=== PATIENT | female | born 1945 | race Caucasian/White ===

== ENCOUNTER 2018-06-01 06:40 | Day surgery (SDC) | payer BC, SELFPAY ==
[2018-05-18 08:54] VITALS: BMI 31.0
[2018-06-01] VITALS (16 sets, daily range): BP systolic 112–164; BP diastolic 51–89; PULSE 56–81; RESP 10–20; TEMP 36.1–36.7; O2SAT 94–100; BMI 30.6; BMI 32.1
[2018-06-01] MEDS: ACETAMINOPHEN 325 MG TABLET 975 MG PO ×3 (07:39→20:28)
--- NOTE | 2018-06-01 07:40 | PM.PREOP ---
Pre-operative Note Interval Note History & Physical reviewed/Exam performed by Physician: Yes Changes to H&P: No
--- NOTE | 2018-06-01 07:40 | PM.OP.1 ---
Operative Date/Time/Diagnoses Date of procedure: 06/01/18 Time of procedure: 10:56 Pre-op diagnosis: Left knee osteoarthritis Post-op diagnosis: same Procedure & Clinicians Procedure: Left total knee arthroplasty Same procedure as scheduled: Yes Indications: The patient presents today for total knee arthroplasty after failure of conservative treatment. The nature of the procedure including the risks and benefits, alternatives, postoperative course and expected outcome were discussed and all questions answered. Consent was obtained. Operative site confirmed and marked. Surgeon: Ramy Guillen Architectural Engineering Teacher: Surya Diaz Anesthesia Type: General, Spinal and Local Operative Notes Findings: Severe osteoarthritis with varus alignment. Closure Type: primary Specimen(s): none sent Prosthetic devices, grafts, tissues, transplants, or devices: [facility]: 5 femoral component, 3 tibial component, 9 mm BCS polyethylene tray and 32 x 9 mm round patella Applied: implant(s) Estimated Blood Loss (mL): 50 Blood products transfused: none Tourniquet time (min): 18 Procedure in detail: The patient was taken to the operative suite and placed under general and spinal anesthesia. The patient was given prophylactic antibiotics prior to surgery. The patient was also given tranexamic acid, 1 g, just prior to surgery for postoperative hemostasis. The lateral knee was prepped and the joint injected with 20 mL of 1% Lidocaine with epinephrine. The knee was then prepped and draped in usual sterile fashion. The leg was exsanguinated with an Esmarch dressing and the tourniquet raised to 250 torr. A 15 cm anterior incision was made. Next a medial trivector arthrotomy was made. The extensor mechanism was marked to ensure accurate repair. Initial exposing dissection was carried out medially and laterally. The knee was then extended and the patellar thickness was measured and a cut made removing approximately 9 mm of bone with a goal of restoring normal patellar thickness. The patella was then sized and drilled. Some excess lateral bone was excised and the patellofemoral ligament released. The tourniquet was then released. The knee was then flexed and the [employer] femoral guide was placed. The anterior pins were placed and the distal rotation holes drilled. The distal cutting guide was placed and the templated distal femoral cut was made. The templating cutting block was then placed and the anterior, posterior and chamfer cuts made. The [employer] tibial guide was placed and the alignment checked along the axis of the proximal tibial with a gordo. The proximal tibial cut was then made with an oscillating saw. All meniscus and bony debris was then removed. Flexion extension gaps were checked. The knee was tight laterally as expected from preoperative alignment. The lateral capsule was released using a pie crust technique with a 15 blade. This nicely balanced the medial lateral gaps. The soft tissues were then injected with a combination of 20 mL of half percent Marcaine with epinephrine and 20 mL of Exparel. The trial components were then placed. The knee went into full extension and flexion beyond 120?. There was excellent medial- lateral balance throughout motion. Patellar tracking was excellent. The trial components were removed and size is confirmed for the final implants. The knee was then exsanguinated with an Esmarch dressing and the tourniquet reapplied for cementing. The knee was cleansed with Pulsavac irrigation and dried. The final components were cemented in with high viscosity vacuum mixed bone cement with antibiotics. The knee was held in extension and the patellar clamp until the cement had adequately cured. The knee was then irrigated with dilute Betadine solution. The extensor mechanism was closed with 2 Quill suture at 90 degrees of flexion. The joint was then injected with a combination of 1 g of tranexamic acid and 20 mL of quarter percent Marcaine with epinephrine. The subcutaneous tissue was closed with 2-0 Vicryl. The skin was closed with werner and surgical adhesive. An Aquacel dressing and Vivek wrap were then applied. Complications: none Condition: stable Disposition: PACU Plan for aftercare: [facility] protocol for total knee arthroplasty.
--- NOTE | 2018-06-01 09:15 | DI.RAD.S_ITS ---
PROCEDURE: XR KNEE LT 1TO2V INDICATIONS: total left knee TECHNIQUE: 2 view(s) of the knee acquired. COMPARISON: None. FINDINGS: Bones: Patient is status post knee joint arthroplasty. Hardware components are in expected positions. Visualized bony structures are intact. Soft tissues: Overlying postoperative changes are noted. IMPRESSION: Expected immediate postoperative appearance, status post total left knee arthroplasty. Dictated by: Zack Alatorre M.D. on 06/01/2018 at 12:29 Approved by: Zack Alatorre M.D. on 06/01/2018 at 12:29
[2018-06-01] MEDS: CEFAZOLIN 2 GM/100 ML FROZ.PIGGY IV ×2 (09:25→18:50)
--- NOTE | 2018-06-01 10:12 | SUR.OPER ---
Supine on padded OR bed. Pillow under head, arms secured on padded armboards <90 degree abduction. Safety belt across torso. Non-operative leg secured with tape over blanket over lower leg. Operative leg secured in [employer]/Jose Carlos positioner. Foam padded brace at thigh of operative leg.
[2018-06-01] MEDS: LIDOCAINE 1% W/EPI INJ 20 ML INJ (10:18)
[2018-06-01] MEDS: TRANEXAMIC ACID 1,000 MG VIAL 1000 MG INJ (10:19)
[2018-06-01] MEDS: BUPIVACAINE 0.5% W/ EPI (PF) 10 ML, TRANEXAMIC ACID 1,000 MG, SODIUM CHLORIDE 0.9% 20 ML INJ (10:20)
[2018-06-01] MEDS: BUPIVACAINE LIPOSOME 266 MG/20 ML VIAL INJ (10:21)
[2018-06-01] MEDS: POVIDONE-IODINE 15 ML, SODIUM CHLORIDE 0.9% 250 ML TOP (10:25)
[2018-06-01] MEDS: LACTATED RINGERS 1,000 ML 42 ML IV (10:44)
[2018-06-01] MEDS: LACTATED RINGERS 1,000 ML 125 ML IV ×2 (12:08→19:29)
[2018-06-01] MEDS: ONDANSETRON 4 MG/2 ML INJ IV (14:13)
--- NOTE | 2018-06-01 14:34 | PC.NURSE ---
Pt was brought to the AC floor at approx. 1200 via the PACU. She is alert and oriented x3 with report of numbness and tingling to RLE. Right knee is wrapped with PAM wrap and is CDI with no drains present. She is able to wiggle her toes and wave her ankles moderately at 1440.. Pt has experienced some mild nausea and has been medicated with 4mg IV Zofran PRN. Upon reassessment, pt reported nausea had abated and was able to rest comfortably.
--- NOTE | 2018-06-01 15:17 | PT.IIE ---
Current Diagnoses Bilateral primary osteoarthritis of knee (06/01/18) Surgery Performed Operation Date: 06/01/18 09:15 Actual Procedures p Total Knee Arthroplasty(Left) - Ramy Guillen MD Surgical History (Last Updated 05/18/18 @ 09:12 by Loida Fonseca RN) Hx of arthroscopy of left knee (Acute) Hx of varicose vein stripping (Acute) Medical History (Last Updated 05/18/18 @ 09:12 by Loida Fonseca RN) Arthritis (Acute) Diverticulosis (Acute) Easy bruisability (Acute) Numbness and tingling of both feet (Acute) Pneumonia (Acute) Raynaud's phenomenon (Acute) Physical Therapy Inpatient Evaluation/Re-Eval M1 PT/OT-IP Prior Functional Status Start: 06/01/18 16:33 Freq: NEEDED Status: Active Protocol: Document 06/01/18 15:17 AB (Rec: 06/01/18 16:51 AB [id number]) Medical Review Prior Functional Status Medical History Reviewed Yes Communication able to make needs known Mobility and Gait stated that she is independent with all mobilities and ambulation without AD Social History Household Members spouse Living Arrangements House Number of Floors (Floors) One Floor Number of Stairs To Enter/Railing? 3 steps to enter with L rail ascending Home Environment High Toilet Walk in Shower Home Equipment Front Wheel Walker Bedside Commode Hand Held Shower Grab Bars In Shower Employment Status Retired M2 PT-IP Current Condition Start: 06/01/18 16:33 Freq: NEEDED Status: Active Protocol: Document 06/01/18 15:17 AB (Rec: 06/01/18 16:51 AB [id number]) Physical Therapy Current Condition Current Condition Evaluation Date 06/01/18 Treatment Diagnosis s/p L TKA; difficulty in walking Onset Date 06/01/18 Weight Bearing Status Weight Bearing Status Weight Bear as Tolerated M3 PT-IP Subjective Start: 06/01/18 16:33 Freq: NEEDED Status: Active Protocol: Document 06/01/18 15:17 AB (Rec: 06/01/18 16:51 AB [id number]) Subjective Physical Therapy Visit Type Type Initial Evaluation Visit Start Time 15:17 Visit Stop Time 15:48 Total Visit Minutes 31 Number of CONSTRUCTION CONTROLLER Visits 0 Physical Therapy Visit Comments Patient Comments pt agreeable to do PT; c/o nausea Therapy Pain Assessment Pain When Pain Assessed At Rest Pain Present Pain Present Pain Reported Location Left Knee Intensity 3 Scale Used Numeric (1 - 10) Pain Management Techniques Apply Cold Re-positioning Timing of Activity with Medications M4 PT-IP Mobility and Gait Start: 06/01/18 16:33 Freq: NEEDED Status: Active Protocol: Document 06/01/18 15:17 AB (Rec: 06/01/18 16:51 AB [id number]) PT-Bed Mobility Assessment Supine to Sit Supine to Sit Standby Assistance Sit to Supine Sit to Supine Standby Assistance PT-Transfer Assessment Sit to and From Stand Sit to and from Stand Contact Guard Assistance 1 Person Assistance Equipment Transfer Assistive Device Gait Belt Front Wheeled Walker Comments Mobility Comments pt with c/o nausea but agreed to do PT. BP 143/78. pt completed supine to sit SBA and was able to sit on EOB SBA . completed sit to stand CGA and was able to ambulate in room but has to go back to bed due to nausea. pt with (+) emesis. informed nurse. Gait Assessment Gait Gait Assistance Required: Contact Guard Assist Distance (Feet) 25 Able to Maintain Weight Bearing Status Yes During Gait Assistive Devices Assistive Device Gait Belt Front Wheeled Walker Orthotic/Prosthetic Devices or Brace: No Gait Deviations General Gait Pattern Antalgic Decreased Stride Length Decreased Feet Clearance Factors Limiting Gait Function Factors Limiting Gait Function Decreased Activity Tolerance Decreased Strength Limited Range of Motion Pain Poor Balance PT-Balance Assessment Sitting Balance and Reactions Static Sitting Balance Ability Good Dynamic Sitting Balance Ability Good Standing Balance and Reactions Static Standing Balance Ability Fair Dynamic Standing Balance Ability Fair Device Used FWW M5 PT-IP Objective Assessments Start: 06/01/18 16:33 Freq: NEEDED Status: Active Protocol: Document 06/01/18 15:17 AB (Rec: 06/01/18 16:51 AB [id number]) Orientation Orientation/Cognition Level of Alertness Alert Orientation Name Age Birthday Month Date Year Day of Week Place Situation Language Function Ability No Deficits Noted Safety Awareness Understands Safety Issues Memory Description No Deficits Noted Gross Range of Motion Lower Extremity ROM Assessment Left Impaired Impairments L knee flexion ~ 80 deg ; L knee extension lacking 10 deg to neutral Strength Lower Extremity Strength Assessment Left Impaired Knee 4-/5 Coordination Assessment Gross Coordination Gross Coordination WNL Sensation Assessment Sensation Gross Sensation WNL Muscle Tone Muscle Tone WNL Yes M6 PT-IP Treatment Start: 06/01/18 16:33 Freq: NEEDED Status: Active Protocol: Document 06/01/18 15:17 AB (Rec: 06/01/18 16:51 AB [id number]) Physical Therapy Treatment Exercises Exercises Quad Sets Heel Slides Education Education Provided Precautions Weight Bearing Status Post-Op Packet Safety M7 PT-IP Assessment and Plan Start: 06/01/18 16:33 Freq: NEEDED Status: Active Protocol: Document 06/01/18 15:17 AB (Rec: 06/01/18 16:51 AB [id number]) PT Summary Assessment and Plan Potential Rehabilitation Potential Good Status of Condition at Evaluation Evolving Summary Impairments Pain ROM Strength Balance Coordination Sensation Tone Cognition Bed Mobility Transfers Gait Activity Tolerance Assessment Summary pt requiring one person assist with mobility but unable to tolerate much activity due to c/o nausea. pt plans to go home with spouse to assist her . pt stated that she is set up for outpt PT. will complete caregiver training and stair climbing trainind when appropriate. Goals Bed Mobility Goal Independent Transfer Goal Independent Front Wheeled Walker Gait Goal Standby Assistance Front Wheel Walker Gait Distance 200 Other Goals up/down 3 steps with L rail ascending SBA Days to Meet Goals 3 Frequency of Treatment Frequency Of Treatment Twice a Day Treatment Plan Physical Therapy Treatment Plan Bed Mobility Training Transfer Training Gait Training Therapeutic Exercise Balance Retraining Post Op Education Discharge Planning Hot or Cold Pack Neuromuscular Re-ed Coordination Retraining Manual Therapy Other Recommendations and Next Treatment ambulation, stair climbing Focus Recommendations To Nursing Amount of Assist Needed 1 Person Assist Discharge Recommendations PT Discharge Recommendations Home with Assistance Outpatient PT
[2018-06-01] MEDS: OXYCODONE IR 5 MG TABLET PO (16:31)
--- NOTE | 2018-06-01 16:42 | PC.NURSE ---
1615- Pt up with PT at change of shift, reported nausea, with 20mL clear foamy emesis, back to bed with cold washcloth to forehead, nausea relieved. Pt with headache, given scheduled 1300 APAP 975mg, (pt was asleep at that hour), also rates knee pain 4/10 at this time, given percolone 5mg PO. Up to BRP 1PA FWW to void, unmeasured, denies nausea. ice packs to left knee, provided crackers, yogurt, and calf SCD's on, LFA LR @ 125, bed alarm on for safety.
[2018-06-01] MEDS: ONDANSETRON 4 MG ODT PO (19:18)
[2018-06-01] MEDS: ASPIRIN EC 81 MG TABLET PO (20:28)
[2018-06-01] MEDS: METOCLOPRAMIDE HCL 10 MG TABLET PO (20:44)
[2018-06-02 00:10] VITALS: BP 146/70; PULSE 71; RESP 16; TEMP 36.6; O2SAT 94
[2018-06-02] MEDS: OXYCODONE IR 5 MG TABLET PO ×2 (00:22→07:05)
--- NOTE | 2018-06-02 00:29 | PC.NURSE ---
Assumed care of pt at 2300 on 06/01/18. Pt sleeping during bedside hand-off. Bed alarm on. Call light within reach. Awakens to use bathroom at approx 0015. A/O. 1 PA to bathroom with fww. Steady on feet. Denies dizziness during ambulation but reports nausea, w/o emesis, resolved once back in bed. Declined need for medication. Medicated with 5 mg oxycodone for 4/10 post-op pain. CMS+. Able to wiggle toes, denies numbness. Drsg with silas wrap c/d/i. Ice packs to knee. SCD's on. CPOX on. IVF infusing per orders. Bed alarm on. Call light withing reach. Advised pt to call for needs and not to get oob without staff.
[2018-06-02] MEDS: CEFAZOLIN 2 GM/100 ML FROZ.PIGGY IV (02:04)
[2018-06-02] MEDS: LACTATED RINGERS 1,000 ML 125 ML IV (04:14)
[2018-06-02 05:47] VITALS: BP 142/72; PULSE 81; RESP 16; TEMP 36.4; O2SAT 98
[2018-06-02 06:55] LABS: Hematocrit 33.5 % (36-46); Hemoglobin 11.1 g/dL (12.0-16.0)
[2018-06-02 08:00] VITALS: BP 126/71; PULSE 74; RESP 16; TEMP 36.6; O2SAT 94
--- NOTE | 2018-06-02 08:26 | PM.DS.1 ---
History of Present Illness Date Patient Seen: 06/02/18 Time Patient Seen: 08:26 Chief complaint: Left Total Knee Arthroplasty Narrative: Hospital day 2, postop day 1 following left total knee arthroplasty by Dr. Guillen. Patient remained stable overnight. She has not had physical therapy yet. Patient is desiring to go home today if possible. She is taking oxycodone for pain. She is scheduled to go to [facility] in [place] next week. Discharge Providers Date of admission: 06/01/18 06:40 Discharge Date: 06/02/18 Primary care physician: Maldonado Ordoñez MD Consults: 06/01/18 06:00 Consult to Anesthesiology Routine Comment: Consulting Provider: Anesthesiologist Reason for consultation: Regional block for post operative pain control 06/01/18 11:56 Consult to Discharge Planning Routine Comment: Consult to Physical Therapy Evaluate & Treat Comment: Physician Instructions: postop TKA protocol Consult to Respiratory Therapy Evaluate & Treat Comment: Physician Instructions: Evaluate and treat Discharge provider: Kilo Nguyen PA-C Summary Discharge Diagnosis: Status post left total knee arthroplasty Hospital Course: Patient brought to hospital on 06/01/2018 for above-noted surgery. She remained stable postoperatively. Progressed with physical therapy. Discharged home on postop day 1. She is a [facility] patient. Status at Discharge Cognitive/behavioral status at discharge: at baseline, oriented and calm Functional status at discharge: uses cane/walker Overall status at discharge: patient is progressing back to baseline Time Spent with Patient Less than 30 minutes Exam Vital Signs (past 8 hours): - 06/02/18 05:47 Temperature 97.6 F Pulse Rate 81 Respiratory Rate 16 Blood Pressure 142/72 H Pulse Oximetry 98 Fraction of Inspired Oxygen 21 Oxygen Delivery Method Room Air Oxygen Flow Rate 0 Narrative Exam Narrative: Legs. Vivek wrap an Aquacel dressing to left knee is dry without drainage or inflammation. No calf pain or swelling. Pulses symmetrical. Objective Labs Result Diagrams: 06/02/18 06:36 Labs: Laboratory Results - last 24 hr 06/02/18 06:36 Hgb 11.1 L Hct 33.5 L Discharge Plan Discharge Plan Patient Disposition: Home Discharge comment: Discharged home today after cleared by PT. Patient is a [facility] path patient. She does have prescription for postop oxycodone. She is scheduled to go to [facility] in [place]. Discharge Med Rec/Prescriptions Prescriptions: New acetaminophen 325 mg Tablet 975 mg PO TID Qty: 30 RF: 0 aspirin 81 mg Tablet,Delayed Release (Dr/Ec) 81 mg PO BID Qty: 60 RF: 0 meloxicam [Mobic] 7.5 mg Tablet 15 mg PO DAILY Qty: 30 RF: 0 Discontinued meloxicam 15 mg tablet 15 mg PO QD-BID RF: 0 Follow up/Referrals: Maldonado Ordoñez MD [Primary Care Provider] - Provider Discharge Instructions Diet: Diet as Tolerated Activity: Ambulate as tolerated. Use walker as needed. Other treatments: Take aspirin 81 mg 1 b.i.d. times 30 days postop. Skin/Wound/Dressing Care Report to your healthcare provider any signs of infection, such as:: chills, fever, night sweats, increased pain, unusual drainage and unusual redness Dressing: Keep Aquacel dressing in place until postop visit. May remove Vivek wrap. Visit Report/Discharge Packet Instructions: DI for Knee Replacement Visit Report Forms: Stroke Signs & Symptoms Discharge Data Primary Care Provider: Maldonado Ordoñez Attending Provider: Ramy Guillen Admit Date/Time: 06/01/18 06:40
--- NOTE | 2018-06-02 08:29 | P.DS_ITS ---
History of Present Illness Date Patient Seen: 06/02/18 Time Patient Seen: 08:26 Chief complaint: Left Total Knee Arthroplasty Narrative: Hospital day 2, postop day 1 following left total knee arthroplasty by Dr. Guillen. Patient remained stable overnight. She has not had physical therapy yet. Patient is desiring to go home today if possible. She is taking oxycodone for pain. She is scheduled to go to [facility] in [place] next week. Discharge Providers Date of admission: 06/01/18 06:40 Discharge Date: 06/02/18 Primary care physician: Maldonado Ordoñez MD Consults: 06/01/18 06:00 Consult to Anesthesiology Routine Comment: Consulting Provider: Anesthesiologist Reason for consultation: Regional block for post operative pain control 06/01/18 11:56 Consult to Discharge Planning Routine Comment: Consult to Physical Therapy Evaluate & Treat Comment: Physician Instructions: postop TKA protocol Consult to Respiratory Therapy Evaluate & Treat Comment: Physician Instructions: Evaluate and treat Discharge provider: Kilo Nguyen PA-C Summary Discharge Diagnosis: Status post left total knee arthroplasty Hospital Course: Patient brought to hospital on 06/01/2018 for above-noted surgery. She remained stable postoperatively. Progressed with physical therapy. Discharged home on postop day 1. She is a [facility] patient. Status at Discharge Cognitive/behavioral status at discharge: at baseline, oriented and calm Functional status at discharge: uses cane/walker Overall status at discharge: patient is progressing back to baseline Time Spent with Patient Less than 30 minutes Exam Vital Signs (past 8 hours): - 06/02/18 05:47 Temperature 97.6 F Pulse Rate 81 Respiratory Rate 16 Blood Pressure 142/72 H Pulse Oximetry 98 Fraction of Inspired Oxygen 21 Oxygen Delivery Method Room Air Oxygen Flow Rate 0 Narrative Exam Narrative: Legs. Vivek wrap an Aquacel dressing to left knee is dry without drainage or inflammation. No calf pain or swelling. Pulses symmetrical. Objective Labs Result Diagrams: 06/02/18 06:36 Labs: Laboratory Results - last 24 hr 06/02/18 06:36 Hgb 11.1 L Hct 33.5 L Discharge Plan Discharge Plan Patient Disposition: Home Discharge comment: Discharged home today after cleared by PT. Patient is a sweet path patient. She does have prescription for postop oxycodone. She is sc heduled to go to [facility] PT in [place]. Discharge Med Rec/Prescriptions Prescriptions: New acetaminophen 325 mg Tablet 975 mg PO TID Qty: 30 RF: 0 aspirin 81 mg Tablet,Delayed Release (Dr/Ec) 81 mg PO BID Qty: 60 RF: 0 meloxicam [Mobic] 7.5 mg Tablet 15 mg PO DAILY Qty: 30 RF: 0 Discontinued meloxicam 15 mg tablet 15 mg PO QD-BID RF: 0 Follow up/Referrals: Maldonado Ordoñez MD [Primary Care Provider] - Provider Discharge Instructions Diet: Diet as Tolerated Activity: Ambulate as tolerated. Use walker as needed. Other treatments: Take aspirin 81 mg 1 b.i.d. times 30 days postop. Skin/Wound/Dressing Care Report to your healthcare provider any signs of infection, such as:: chills, fever, night sweats, increased pain, unusual drainage and unusual redness Dressing: Keep Aquacel dressing in place until postop visit. May remove Vivek wrap. Visit Report/Discharge Packet Instructions: DI for Knee Replacement Visit Report Forms: Stroke Signs & Symptoms Discharge Data Primary Care Provider: Maldonado Ordoñez Attending Provider: Ramy Guillen Admit Date/Time: 06/01/18 06:40
--- NOTE | 2018-06-02 08:35 | PM.PNPO.1 ---
Subjective Date Patient Seen: 06/02/18 Time Patient Seen: 08:35 Interval history: Hospital day 2, postop day 1 following right patella fracture ORIF by Dr. Guillen. Patient has remained stable postoperatively. She has not been out of bed yet. She has not had any physical therapy. She is in a long-leg hinged knee brace locked in 0? extension. Weightbearing as tolerated. Patient states she lives alone. She does have steps getting her home. She is in the process of having a ramp made which will not be ready until early next week. She does not have help at home. She is concerned about going home in requesting discharge to SNF for a few days before going home. Exam Vital Signs (past 8 hours): - 06/02/18 05:47 Temperature 97.6 F Pulse Rate 81 Respiratory Rate 16 Blood Pressure 142/72 H Pulse Oximetry 98 Fraction of Inspired Oxygen 21 Oxygen Delivery Method Room Air Oxygen Flow Rate 0 Narrative Exam Narrative: Alert, oriented no acute distress resting in bed. Right leg. Vivek wrap an Aquacel dressing to right knee are dry without drainage or inflammation. Long-leg hinged knee brace in position and locked at 0? extension. Good pulses and sensation distal leg. Objective Labs Result Diagrams: 06/02/18 06:36 Labs: Laboratory Results - last 24 hr 06/02/18 06:36 Hgb 11.1 L Hct 33.5 L Assessment & Plan Post-op Postoperative Procedures Operation Date: 06/01/18 09:15 Actual Procedures Side Surgeon p Total Knee Arthroplasty Left Ramy Guillen MD Plan: Patient will begin working with PT today. corporate event planner will talk with patient regarding discharge plan. Patient states she is willing to pay privately for SNF if needed.
[2018-06-02] MEDS: MELOXICAM 7.5 MG TABLET 15 MG PO (09:01)
[2018-06-02] MEDS: ACETAMINOPHEN 325 MG TABLET 975 MG PO (09:01)
[2018-06-02] MEDS: ASPIRIN EC 81 MG TABLET PO (09:01)
--- NOTE | 2018-06-02 09:01 | PT.IPTN ---
Current Diagnoses Bilateral primary osteoarthritis of knee (06/01/18) Surgery Performed Operation Date: 06/01/18 09:15 Actual Procedures p Total Knee Arthroplasty(Left) - Ramy Guillen MD Physical Therapy Treatment Note M2 PT-IP Current Condition Start: 06/01/18 16:33 Freq: NEEDED Status: Active Protocol: Document 06/01/18 15:17 AB (Rec: 06/01/18 16:51 AB [id number]) Physical Therapy Current Condition Current Condition Evaluation Date 06/01/18 Treatment Diagnosis s/p L TKA; difficulty in walking Onset Date 06/01/18 Weight Bearing Status Weight Bearing Status Weight Bear as Tolerated M3 PT-IP Subjective Start: 06/01/18 16:33 Freq: NEEDED Status: Active Protocol: Document 06/02/18 08:14 EA (Rec: 06/02/18 08:25 EA [id number]) Subjective Physical Therapy Visit Type Type Treatment Note Visit Start Time 07:35 Visit Stop Time 08:10 Total Visit Minutes 35 Physical Therapy Visit Comments Patient Comments Patient reports slight headache but would like to try to mobilize. Patient Goals Patient would like to be independent in all transfers prior to discharge today. Therapy Pain Assessment Pain When Pain Assessed At Rest Pain Present Pain Present Pain Reported Location Left Knee Intensity 3 Scale Used Numeric (1 - 10) Description Acute M4 PT-IP Mobility and Gait Start: 06/01/18 16:33 Freq: NEEDED Status: Active Protocol: Document 06/02/18 08:14 EA (Rec: 06/02/18 08:25 EA [id number]) PT-Bed Mobility Assessment Rolling Level of Assist Standby Assistance Supine to Sit Supine to Sit Standby Assistance Sit to Supine Sit to Supine Standby Assistance Scooting Scooting to Edge of Bed Standby Assistance PT-Transfer Assessment Sit to and From Stand Sit to and from Stand Standby Assistance Equipment Transfer Assistive Device Bed Rail Front Wheeled Walker Transfers Transfer Destination Bed Chair Transfer Technique stepping Transfer Ability Level of Assist Standby Assistance Comments Mobility Comments Patient completed transfers with slight pain. Requires minimal cues with backward stepping, placing surgical leg fwd when seating/standing and turning to good side. Gait Assessment Gait Gait Assistance Required: Standby Assistance Distance (Feet) 50 Able to Maintain Weight Bearing Status Yes During Gait Assistive Devices Assistive Device Gait Belt Front Wheeled Walker Gait Deviations General Gait Pattern Antalgic Factors Limiting Gait Function Factors Limiting Gait Function Decreased Activity Tolerance Decreased Strength Pain Comments Gait Comments BP take prior was 148/110, 82 bpm BP after mobility: 128/71, 74 bpm Patient exhibit stable gait with FWW. Stair Climbing Assessment Evaluation Level of Assist On Stairs Contact Guard Assistance Devices Stair Climbing Assistive Devices None Technique/Endurance Stair Climbing Direction Ascend and Descend Stair Climbing Technique Step to Step Number of Steps Climbed 4 Query Text: Stair Climbing Set # Repetitions (reps) 1 PT-Balance Assessment Sitting Balance and Reactions Static Sitting Balance Ability Normal Dynamic Sitting Balance Ability Good Standing Balance and Reactions Static Standing Balance Ability Good Dynamic Standing Balance Ability Fair M5 PT-IP Objective Assessments Start: 06/01/18 16:33 Freq: NEEDED Status: Active Protocol: Document 06/01/18 15:17 AB (Rec: 06/01/18 16:51 AB [id number]) Orientation Orientation/Cognition Level of Alertness Alert Orientation Name Age Birthday Month Date Year Day of Week Place Situation Language Function Ability No Deficits Noted Safety Awareness Understands Safety Issues Memory Description No Deficits Noted Gross Range of Motion Lower Extremity ROM Assessment Left Impaired Impairments L knee flexion ~ 80 deg ; L knee extension lacking 10 deg to neutral Strength Lower Extremity Strength Assessment Left Impaired Knee 4-/5 Coordination Assessment Gross Coordination Gross Coordination WNL Sensation Assessment Sensation Gross Sensation WNL Muscle Tone Muscle Tone WNL Yes M6 PT-IP Treatment Start: 06/01/18 16:33 Freq: NEEDED Status: Active Protocol: Document 06/02/18 08:14 EA (Rec: 06/02/18 08:25 EA [id number]) Physical Therapy Treatment Exercises Exercises Ankle Pumps Gluteal Sets Quad Sets Heel Slides Short Arc Quads Passive Knee Extension Hang Seated Knee Flexion/Extension Education Education Provided Precautions Weight Bearing Status Safety M7 PT-IP Assessment and Plan Start: 06/01/18 16:33 Freq: NEEDED Status: Active Protocol: Document 06/02/18 08:14 EA (Rec: 06/02/18 08:25 EA [id number]) PT Summary Assessment and Plan Potential Rehabilitation Potential Good Status of Condition at Evaluation Stable Summary Impairments Pain ROM Strength Bed Mobility Transfers Gait Activity Tolerance Progress Towards Goals Progressing Toward Goals Assessment Summary Patient demonstrates improved gait tolerance and safe stairs mobility/navigation with few Vc's for safety. Patient understood post surgery pre- cautions and HEP. Patient will continue to benefit with skilled PT and would possibly discharge later in the afternoon or once medically stable. Goals Bed Mobility Goal Independent Transfer Goal Independent Gait Goal Independent Gait Distance 75 Other Goals To practice stairs with cane this afternoon and distance ambulate with FWW. Days to Meet Goals 1 Frequency of Treatment Frequency Of Treatment Twice a Day Treatment Plan Physical Therapy Treatment Plan Bed Mobility Training Transfer Training Gait Training Therapeutic Exercise Discharge Planning Hot or Cold Pack Recommendations To Nursing Amount of Assist Needed 1 Person Assist Discharge Recommendations PT Discharge Recommendations Home with Assistance Outpatient PT
--- NOTE | 2018-06-02 09:16 | CM.IDA ---
Discharge Planning/Care Management CM Discharge Assessment Start: 06/02/18 08:58 Freq: Status: Active Protocol: Document 06/02/18 09:00 MIKIE (Rec: 06/02/18 09:16 MIKIE [id number]) Discharge Planning Assessment Assigned Flexible Nanny THA Obrien DPOA/Assigned Designee Name Monico Colon, spouse Contact Information [phone] Advance Directives? Yes Advance Directives on File No History Provided By Patient Medical Record Prior Living Arrangements House Household Members spouse Type of transporation used prior to Drives own vehicle admit Independent with ADL's Yes Is patient alert and oriented? Yes Barriers to Discharge No Comment Pt is POD#[address] left total knee by Dr Guillen. Payer:Medicare / Federal. Reviewed chart and discussed DCP w/ OSWALDO Nguyen. Pt is eager to return home today or tomorrow; PT has assessed and anticipates there will be no barriers to a safe return home . PA, RN, therapy agree it's likely pt will DC home today w /family to assist and outpt PT . Available if DC needs or concerns arise today. THA Henao Discharge Plan Home Transportation Arrangement Family Referrals Initiated None needed Review Status In Process
[2018-06-02 10:03] VITALS: PULSE 72; RESP 16; O2SAT 97
--- NOTE | 2018-06-02 13:37 | PT.IPTN ---
Current Diagnoses Bilateral primary osteoarthritis of knee (06/01/18) Surgery Performed Operation Date: 06/01/18 09:15 Actual Procedures p Total Knee Arthroplasty(Left) - Ramy Guillen MD Physical Therapy Treatment Note M2 PT-IP Current Condition Start: 06/01/18 16:33 Freq: NEEDED Status: Active Protocol: Document 06/01/18 15:17 AB (Rec: 06/01/18 16:51 AB [id number]) Physical Therapy Current Condition Current Condition Evaluation Date 06/01/18 Treatment Diagnosis s/p L TKA; difficulty in walking Onset Date 06/01/18 Weight Bearing Status Weight Bearing Status Weight Bear as Tolerated M3 PT-IP Subjective Start: 06/01/18 16:33 Freq: NEEDED Status: Active Protocol: Document 06/02/18 13:23 EA (Rec: 06/02/18 13:37 EA [id number]) Subjective Physical Therapy Visit Type Type Treatment Note Visit Start Time 13:10 Visit Stop Time 13:35 Total Visit Minutes 25 Physical Therapy Visit Comments Patient Comments Patient reports she has been mobilizing inside the room with assist; states would like to try stairs again and ambulates more than 50 ft. Patient Goals Patient would like to be as independent as much as she can prior to discharge Therapy Pain Assessment Pain When Pain Assessed During Mobility Pain Present Pain Present Pain Reported Location Left Knee Intensity 2 Description Acute M4 PT-IP Mobility and Gait Start: 06/01/18 16:33 Freq: NEEDED Status: Active Protocol: Document 06/02/18 13:23 EA (Rec: 06/02/18 13:37 EA [id number]) PT-Bed Mobility Assessment Rolling Level of Assist Independent Supine to Sit Supine to Sit Independent Sit to Supine Sit to Supine Independent Scooting Scooting to Edge of Bed Standby Assistance PT-Transfer Assessment Sit to and From Stand Sit to and from Stand Standby Assistance Equipment Transfer Assistive Device Front Wheeled Walker Transfers Transfer Destination Bed Chair Toilet Transfer Technique stepping transfer Transfer Ability Level of Assist Standby Assistance Comments Mobility Comments Patient perform transfers with no cues and show safety. Gait Assessment Gait Gait Assistance Required: Standby Assistance Able to Maintain Weight Bearing Status Yes During Gait Assistive Devices Assistive Device Gait Belt Front Wheeled Walker Gait Deviations General Gait Pattern Antalgic Factors Limiting Gait Function Factors Limiting Gait Function Decreased Activity Tolerance Decreased Strength Pain Comments Gait Comments Ambulates with FWW with SBA > 150 ft with no acute distress with ability to perform conversation with no instability noted on flat level surface. Stair Climbing Assessment Evaluation Level of Assist On Stairs Standby Assistance Devices Stair Climbing Assistive Devices Straight Cane Technique/Endurance Stair Climbing Direction Ascend and Descend Stair Climbing Technique Step to Step Number of Steps Climbed 4 Query Text: Stair Climbing Set # Repetitions (reps) 1 Comments Stair Climbing Comments Patient exhibits safe stairs navigation with ability to remember foot sequencing. PT-Balance Assessment Sitting Balance and Reactions Static Sitting Balance Ability Normal Dynamic Sitting Balance Ability Good Standing Balance and Reactions Static Standing Balance Ability Good Dynamic Standing Balance Ability Fair M5 PT-IP Objective Assessments Start: 06/01/18 16:33 Freq: NEEDED Status: Active Protocol: Document 06/01/18 15:17 AB (Rec: 06/01/18 16:51 AB [id number]) Orientation Orientation/Cognition Level of Alertness Alert Orientation Name Age Birthday Month Date Year Day of Week Place Situation Language Function Ability No Deficits Noted Safety Awareness Understands Safety Issues Memory Description No Deficits Noted Gross Range of Motion Lower Extremity ROM Assessment Left Impaired Impairments L knee flexion ~ 80 deg ; L knee extension lacking 10 deg to neutral Strength Lower Extremity Strength Assessment Left Impaired Knee 4-/5 Coordination Assessment Gross Coordination Gross Coordination WNL Sensation Assessment Sensation Gross Sensation WNL Muscle Tone Muscle Tone WNL Yes M6 PT-IP Treatment Start: 06/01/18 16:33 Freq: NEEDED Status: Active Protocol: Document 06/02/18 13:23 EA (Rec: 06/02/18 13:37 EA [id number]) Physical Therapy Treatment Exercises Exercises Ankle Pumps Gluteal Sets Quad Sets Heel Slides Education Education Provided Precautions Weight Bearing Status Safety M7 PT-IP Assessment and Plan Start: 06/01/18 16:33 Freq: NEEDED Status: Active Protocol: Document 06/02/18 13:23 EA (Rec: 06/02/18 13:37 EA [id number]) PT Summary Assessment and Plan Potential Rehabilitation Potential Good Status of Condition at Evaluation Stable Summary Impairments Pain ROM Strength Gait Activity Tolerance Progress Towards Goals Safe For Discharge Assessment Summary Patient demonstrates safe transfers and mobility with ability to remember pre- cautions with the use FWW. Patient navigate stairs with no signs of instability with ability to perform foot sequencing. Patient were able to show me independent HEP safely. Patient is safe to discharge with to look after. Frequency of Treatment Frequency Of Treatment Discharge Recommendations To Nursing Amount of Assist Needed Standby Assistance
== END 2018-06-02 13:40 | disposition home or self-care (01) ==
LOC: AC 06-02 08:29 → OR 06-02 14:55
PROVIDERS: PCP Family Medicine; Visit Provider Orthopaedic Surgery
PROC: 0SRD0JZ Replacement of Left Knee Joint with Synthetic Substitute, Open Approach (ICD-10-PCS; CPT 27447; principal; 2018-06-01 09:15)
DX: M17.12 Unilateral primary osteoarthritis, left knee (principal); E66.9 Obesity, unspecified; Z68.31 Body mass index [BMI] 31.0-31.9, adult
CPT/HCPCS: 27447; 36415; 73560; 85014; 85018; 94760; 97110; 97116; 97162; 97530; C1776; C9290; J0690; J2250; J2405; J2704; J3010